=== PATIENT | male | born 1995 | race American Indian/Alaskan Native ===

== ENCOUNTER 2018-01-25 23:28 | Emergency (ER) | payer OTHER ==
[2018-01-25] MEDS ORDERED: DUONEB *Not for PRN Use IH ONE ×2 (23:31→23:49)
[2018-01-25] MEDS ORDERED: DELTASONE ONE (23:38)
[2018-01-25 23:49] VITALS: BP 126/73
[2018-01-25] MEDS ORDERED: DELTASONE PO ONE (23:49)
[2018-01-26] MEDS ORDERED: MAGNESIUM SULFATE 2GM/50ML 2 GM/50 ML BAG IV ONE (01:14)
[2018-01-26] MEDS ORDERED: PROVENTIL IH ONE (01:14)
[2018-01-26] MEDS ORDERED: ATROVENT IH ONE (01:14)
--- NOTE | 2018-01-26 01:15 | Emergency Department Report ---
ED Asthma HPI - General Chief Complaint: Adult Asthma Stated Complaint: DIFFICULTY BREATHING, SHORTNESS OF BREATHING Time Seen by Provider: 01/26/18 01:13 Source: patient, family Mode of arrival: Ambulatory Limitations: No Limitations - History of Present Illness Initial Comments: Patient here reports that he recently moved at a time but he is back visiting and reports that he is having difficulty breathing this morning will wheeze in and coughing. Patient says he takes Advair and albuterol but he does not take his Advair as prescribed he just take it as needed. Patient has a history of asthma and history of back surgery in the past. Denies any chest pain or shortness of breath. Denies any back pain. Reports some cough and period he said he took his inhaler but it's not helping as it used to. Denies history of intubation or any recent admission to hospital or ED visit. Denies any fever or chills or nausea or vomiting. Difficulty breathing and worse with ambulating better with rest. MD Complaint: "asthma attack", shortness of breath, wheezing -: This morning Asthma History: childhood onset, history of prior ED visit Severity: severe Context: recent URI, allergen exposure Associated Symptoms: dry cough Treatments Prior to Arrival: inhaled bronchodilator, inhaled steroid - Related Data Current Asthma Therapy: inhaled bronchodilator, inhaled steroid Home Medications Medication Instructions Recorded Confirmed Last Taken ALBUTEROL Inhaler [Proair] 2 puff IH QID PRN 01/26/18 01/26/18 01/25/18 Fluticasone/[id number]/[id number] [ 2 puff IH BID 01/26/18 01/26/18 01/25/18 07:00 Advair NF)] Previous Rx's Medication Instructions Recorded Last Taken Type ALBUTEROL NEB's [Proventil 0.083% 3 ml IH Q6H PRN #1 box 01/26/18 Unknown Rx NEBS] Cetirizine HCl [ZyrTEC] 10 mg PO QAM 14 Days #14 capsule 01/26/18 Unknown Rx Prednisone [predniSONE 10 mg 10 mg PO .TAPER #1 tab.ds.pk 01/26/18 Unknown Rx (6-Day Pack, 21 Tabs)] Allergies Allergy/AdvReac Type Severity Reaction Status Date / Time No Known Allergies Allergy Verified 01/25/18 23:48 ED Review of Systems ROS: Stated complaint: DIFFICULTY BREATHING, SHORTNESS OF BREATHING Other details as noted in HPI Constitutional: denies: chills, fever Eyes: denies: eye pain, eye discharge, vision change ENT: congestion. denies: ear pain, throat pain Respiratory: cough, shortness of breath, SOB with exertion, wheezing. denies: orthopnea, SOB at rest, stridor Cardiovascular: denies: chest pain, palpitations, dyspnea on exertion, edema, syncope, paroxysmal nocturnal dyspnea Gastrointestinal: denies: abdominal pain, nausea, vomiting, diarrhea, hematochezia Musculoskeletal: denies: back pain, joint swelling, arthralgia, myalgia Skin: denies: rash, lesions Neurological: denies: headache, weakness ED Past Medical Hx - Past Medical History Previous Medical History?: Yes Hx Asthma: Yes - Surgical History Past Surgical History?: Yes Additional Surgical History: back - Family History Family history: hypertension - Social History Smoking Status: Current Every Day Smoker Substance Use Type: None Other Social History: 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 - Medications Home Medications: Home Medications Medication Instructions Recorded Confirmed Last Taken Type ALBUTEROL Inhaler [Proair] 2 puff IH QID PRN 01/26/18 01/26/18 01/25/18 History ALBUTEROL NEB's [Proventil 0.083% 3 ml IH Q6H PRN #1 box 01/26/18 Unknown Rx NEBS] Cetirizine HCl [ZyrTEC] 10 mg PO QAM 14 Days #14 capsule 01/26/18 Unknown Rx Fluticasone/[id number]/[id number] [ 2 puff IH BID 01/26/18 01/26/18 01/25/18 07:00 History Advair NF)] Prednisone [predniSONE 10 mg 10 mg PO .TAPER #1 tab.ds.pk 01/26/18 Unknown Rx (6-Day Pack, 21 Tabs)] ED Physical Exam - General Limitations: No Limitations General appearance: alert, in no apparent distress - Head Head exam: Present: atraumatic, normocephalic, normal inspection - Eye Eye exam: Present: normal appearance, PERRL, EOMI Pupils: Present: normal accommodation - ENT ENT exam: Present: normal orophraynx, mucous membranes moist, TM's normal bilaterally, normal external ear exam, other (bilateral nasal mucosa pale and boggy with clear drainage). Absent: normal exam - Neck Neck exam: Present: normal inspection, full ROM, other (no C-spine tenderness). Absent: tenderness, lymphadenopathy - Respiratory Respiratory exam: Present: respiratory distress, wheezes, accessory muscle use, decreased breath sounds. Absent: normal lung sounds bilaterally, rales, rhonchi , stridor, chest wall tenderness, prolonged expiratory - Cardiovascular Cardiovascular Exam: Present: normal rhythm, tachycardia, normal heart sounds. Absent: systolic murmur, diastolic murmur - GI/Abdominal GI/Abdominal exam: Present: soft, normal bowel sounds. Absent: distended, tenderness, guarding, rebound, rigid, organomegaly, mass, bruit, pulsatile mass , hernia - Extremities Exam Extremities exam: Present: normal inspection, full ROM, normal capillary refill , other (no clubbing, cyanosis or edema. +2 pulses all extremities and no neurovascular compromise). Absent: tenderness, pedal edema, joint swelling, calf tenderness - Back Exam Back exam: Present: normal inspection, full ROM, other (Ambulates without any difficulties). Absent: tenderness, CVA tenderness (R), CVA tenderness (L), muscle spasm, paraspinal tenderness, vertebral tenderness, rash noted - Neurological Exam Neurological exam: Present: alert, oriented X3, normal gait - Psychiatric Psychiatric exam: Present: normal affect, normal mood - Skin Skin exam: Present: warm, dry, intact, normal color. Absent: rash ED Course Vital Signs 01/25/18 01/25/18 23:28 23:48 Temperature 98.7 F Pulse Rate 138 H Respiratory 16 Rate Blood Pressure 126/73 O2 Sat by Pulse 94 Oximetry - Reevaluation(s) Reevaluation #1: 01/26/18 01:35 Triage nurse spoke with Dr. Das and patient received DuoNeb 1 treatment and prednisone 60 mg by mouth and emergency room without any relief of wheezing and coughing. Reevaluation #2: 01/26/18 02:53 Patient is on second dose of albuterol 7.5 mg, Atrovent 0.5 mg nebulizer treatment, Solu-Medrol 125 mg IV and he also received magnesium 2 g IV and emergency room. I will reevaluate after nebulizer treatment. Reevaluation #3: 01/26/18 04:06 Patient stable, he states that he is feeling much better after last dose of nebulizer treatment. Pulse ox is 98% and heart rates at 100. Heart rate 100 because patient received a total of 10 mg of albuterol. He is ambulatory and no use of accessory muscle noted. Normal work of breathing ED Medical Decision Making - Medical Decision Making ED course: Patient with presentation of asthma exacerbation and found to have acute exacerbation of asthma which turned out to be moderate persistent. Patient was initially given DuoNeb nebulizer 1 and prednisone 60 mg by mouth in triage area with pulse ox of 93% and increased work of breathing with presentation. Triage nurse spoke with Dr. Das and he ordered DuoNeb and prednisone. I saw patient in triage and patient with increased work of breathing after nebulizer treatment and prednisone with O2 sat remains at 93%. Patient brought back to ED room and started on albuterol 7.5 mg nebulizer, Atrovent 0.5 mg nebulizer, Solu-Medrol 125 mg IV and he was also given magnesium 2 g IV. Reevaluated after nebulizer and his lung sounds are with minimal wheeze in the upper lung dale on other dale are clear. No use of accessory muscles. His pulse ox is 98% on room air and heart rate is at 100 due to a total of 10 mg of albuterol given. Patient said he is feeling a lot better. I discussed the patient that Advair is to be used twice daily every day and albuterol to be used as needed. Patient voiced understanding of diagnosis, treatment plan and need to follow up with primary care. Patient discharged home with his family in stable condition with a prescription for prednisone Dosepak, albuterol nebulizer with [facility]. Patient said he will be going to Dr. Vivas's office later on this morning. Patient also counseled on smoking cessation as he smokes. Discussed with him that smoking and will trigger asthma flareup and also will lead to chronic lung disease. Critical care attestation.: If time is entered above; I have spent that time in minutes in the direct care of this critically ill patient, excluding procedure time. ED Disposition Clinical Impression: Nicotine abuse Asthma attack Qualifiers: Asthma severity: moderate Asthma persistence: persistent Qualified Code(s): J45.41 - Moderate persistent asthma with (acute) exacerbation Allergic rhinitis Qualifiers: Allergic rhinitis trigger: unspecified Allergic rhinitis seasonality: unspecified seasonality Qualified Code(s): J30.9 - Allergic rhinitis, unspecified Disposition: DC-01 TO HOME OR SELFCARE Is pt being admited?: No Does the pt Need Aspirin: No Condition: Stable Instructions: Asthma (ED), Allergic Rhinitis (ED), How to Stop Smoking (ED) Additional Instructions: Please follow up with Dr. Ariana Trevino later on today. Use albuterol nebulizer every 6 hours 2 days and then as needed Takes Zyrtec for nasal congestion See prescription for prednisone Dosepak He is using her Advair as was prescribed by your primary care doctor this is to be used twice daily. If you symptoms worsen, return to the emergency room otherwise follow-up with a primary care physician Prescriptions: ALBUTEROL NEB's [Proventil 0.083% NEBS] 3 ml IH Q6H PRN #1 box PRN Reason: Cough and wheezing Cetirizine HCl [ZyrTEC] 10 mg PO QAM 14 Days #14 capsule Prednisone [predniSONE 10 mg (6-Day Pack, 21 Tabs)] 10 mg PO .TAPER #1 tab.ds.pk Referrals: LAURENCE TREVINO MD [Staff Physician] - 01/26/18 Forms: Accompanied Note, Work/School Release Form(ED)
== END 2018-01-26 04:55 | disposition home or self-care (01) ==
LOC: ED 23:28
DX: J45.909 Unspecified asthma, uncomplicated (principal); F17.200 Nicotine dependence, unspecified, uncomplicated
CPT/HCPCS: 96365; 96375; 99283; J2930; J3475; J7512; 94640